=== PATIENT | female | born 1955 | race Two or more races ===

== ENCOUNTER 2020-10-23 14:48 | Outpatient (CLI) | payer OTHER | END 2020-10-23 18:20 | disposition home or self-care (01) | LOC: PPH VACUNA 14:48 | PROVIDERS: ATTEND Emergency Medicine Pediatric Emergency Medicine | DX: Z23 Encounter for immunization (principal) ==

== ENCOUNTER → 2020-12-13 | Outpatient (CLI) | payer OTHER | END | disposition home or self-care (01) | LOC: TOM 12:55 | PROVIDERS: ATTEND Internal Medicine Endocrinology, Diabetes & Metabolism | DX: R06.02 Shortness of breath (principal); R06.09 Other forms of dyspnea; M41.25 Other idiopathic scoliosis, thoracolumbar region; M81.0 Age-related osteoporosis without current pathological fracture; E89.0 Postprocedural hypothyroidism ==

== ENCOUNTER 2021-07-29 08:00 | Outpatient (CLI) | payer OTHER | END 2021-07-29 08:30 | disposition home or self-care (01) | LOC: PPH VACUNA 08:00 | PROVIDERS: ATTEND Emergency Medicine Pediatric Emergency Medicine | DX: Z23 Encounter for immunization (principal) ==

== ENCOUNTER 2021-09-09 13:27 | Outpatient (CLI) | payer OTHER | END 2021-09-09 14:56 | disposition home or self-care (01) | LOC: SONOGRAMA 13:27 | PROVIDERS: ATTEND Family Medicine Geriatric Medicine | DX: M25.561 Pain in right knee (principal); M25.562 Pain in left knee; M79.646 Pain in unspecified finger(s); R22.30 Localized swelling, mass and lump, unspecified upper limb; M11.261 Other chondrocalcinosis, right knee; M25.551 Pain in right hip ==

== ENCOUNTER 2022-02-11 06:24 | Outpatient (CLI) | payer OTHER | END 2022-02-11 07:00 | disposition home or self-care (01) | LOC: TOM 06:24 | PROVIDERS: ATTEND Internal Medicine Gastroenterology | DX: K56.50 Intestinal adhesions [bands], unspecified as to partial versus complete obstruction (principal); R19.00 Intra-abdominal and pelvic swelling, mass and lump, unspecified site; Z80.0 Family history of malignant neoplasm of digestive organs ==

== ENCOUNTER 2023-09-06 07:27 | Outpatient (CLI) | payer OTHER | END 2023-09-06 08:00 | disposition home or self-care (01) | LOC: SONOGRAMA 07:27 | PROVIDERS: ATTEND Family Medicine | DX: N20.0 Calculus of kidney (principal) ==

== ENCOUNTER 2023-10-08 08:37 | Outpatient (CLI) | payer OTHER | END 2023-10-08 12:11 | disposition home or self-care (01) | LOC: MAMO-SONO 08:37 | DX: N60.11 Diffuse cystic mastopathy of right breast (principal); N60.12 Diffuse cystic mastopathy of left breast; Z12.31 Encounter for screening mammogram for malignant neoplasm of breast ==

== ENCOUNTER → 2023-11-17 07:17 | Outpatient (CLI) | payer OTHER | END | disposition home or self-care (01) | LOC: NUCLEAR 07:00 | PROVIDERS: ATTEND Family Medicine Geriatric Medicine | DX: R10.12 Left upper quadrant pain (principal); R11.10 Vomiting, unspecified; R68.81 Early satiety | CPT/HCPCS: 78264; A9541 ==

== ENCOUNTER 2023-12-17 06:49 | Outpatient (CLI) | payer OTHER | END 2023-12-17 07:01 | disposition home or self-care (01) | LOC: MRI 06:49 | DX: Q67.5 Congenital deformity of spine (principal); M51.26 Other intervertebral disc displacement, lumbar region; M51.36 Other intervertebral disc degeneration, lumbar region; M50.20 Other cervical disc displacement, unspecified cervical region; M50.30 Other cervical disc degeneration, unspecified cervical region | CPT/HCPCS: 72141; 72148 ==

== ENCOUNTER 2024-04-19 09:18 | Outpatient (CLI) | payer OTHER | END 2024-04-19 09:50 | disposition home or self-care (01) | LOC: RAD 09:18 | DX: M19.90 Unspecified osteoarthritis, unspecified site (principal) ==

== ENCOUNTER 2024-05-11 09:19 | Outpatient (CLI) | payer OTHER | END 2024-05-11 15:18 | disposition home or self-care (01) | LOC: TOM 09:19 | DX: R10.12 Left upper quadrant pain (principal) | CPT/HCPCS: 74178; Q9965 ==

== ENCOUNTER → 2024-07-07 | Outpatient (CLI) | payer OTHER | END | disposition home or self-care (01) | LOC: MRI 07:36 | PROVIDERS: ATTEND Otolaryngology | DX: R42 Dizziness and giddiness (principal) | CPT/HCPCS: 70553; Q9965 ==

== ENCOUNTER 2024-08-24 10:30 | Emergency (ER) | payer OTHER ==
[~2024-08-24] VITALS: Ht 154.9 cm; Wt 56.7 kg
[2024-08-24] MEDS ORDERED: SYNTHROID88 MCG (10:44)
[2024-08-24] MEDS ORDERED: DICY20TA (10:45)
[2024-08-24] MEDS ORDERED: 0.9 % SODIUM CHLORIDE 1,000 ML IV SCH (11:15)
[2024-08-24 11:25] LABS: HEMOGLOBIN 12.7 g/dL (12.0-15.00); MEAN CELL VOLUME 91.1 fL (80.00-100.00); MEAN CORPUSCULAR HEMOGLOBIN 32.2 pg (27.00-32.0); MEAN CORPUSCULAR HGB CONC 35.4 g/dl (32.0-36.0); PLATELET COUNT 318 K/uL (150-450); RED BLOOD COUNT 3.95 M/uL (4.00-6.00); RED CELL DISTRIBUTION WIDTH 13.1 % (11.5-14.5)
[2024-08-24 11:44] LABS: CALCIUM 9.1 mg/dL (8.5-10.1); CREATININE SERUM 0.7 mg/dL (0.55-1.02); GFR 82.97; POTASSIUM 4.18 mEq/L (3.5-5.1)
[2024-08-24 12:11] LABS: PH,URINE 7.5 (5.0-8.0); URINE APPEARANCE Clear; URINE BILIRRUBIN Negative (NEGATIVE); URINE BLOOD Negative; URINE COLOR Yellow; URINE GLUCOSE Negative (NEGATIVE); URINE LEUKOCYTE Trace; URINE NITRATE Negative; URINE PROTEIN 30 (NEGATIVE); URINE UROBILINOGEN 0.2 E.U./dl
[2024-08-24 12:15] LABS: URINE BACTERIA 468.6 uL (0.0-1933); URINE EPITHELIAL CELLS 95.6 uL (0.0-38.8); URINE RBC 33.5 uL (0.0-20.8); URINE WBC 19.4 uL (0.0-23.2)
[2024-08-24 12:20] LABS: URINE KETONE 40 (NEGATIVE)
[2024-08-24] MEDS ORDERED: ONDANSETRON HCL 2 MG/ML VIAL IV STA (14:01)
[2024-08-24] MEDS ORDERED: KETOROLAC TROMETHAMINE 30 MG VIAL IV ONE (14:15)
== END 2024-08-24 15:55 | disposition home or self-care (01) ==
LOC: ER 10:31
PROVIDERS: Emergency Medicine
DX: R10.9 Unspecified abdominal pain (principal); E03.8 Other specified hypothyroidism
CPT/HCPCS: 36415; 74177; 96365; 96366; 99284; J1885; J2405; J7030; Q9965

== ENCOUNTER 2024-08-25 09:30 | Outpatient (CLI) | payer OTHER ==
[~2024-08-25 09:30] MED LIST: DICY20TA; SYNTHROID88 MCG
== END 2024-08-25 09:50 | disposition home or self-care (01) ==
LOC: SONOGRAMA 09:30
PROVIDERS: ATTEND Radiology Diagnostic Radiology
DX: R10.9 Unspecified abdominal pain (principal); R10.2 Pelvic and perineal pain

== ENCOUNTER 2025-01-30 06:52 | Outpatient (CLI) | payer OTHER | END 2025-01-30 07:00 | disposition home or self-care (01) | LOC: RAD 06:52 | DX: Z01.810 Encounter for preprocedural cardiovascular examination (principal) ==